=== PATIENT | female | born 1965 | race Caucasian/White ===

== ENCOUNTER 2023-09-13 21:46 | Emergency (ER) | payer OTHER ==
--- NOTE | 2023-09-13 22:21 | ERPHSYRPT ---
- History of Present Illness Time Seen by Provider: 09/13/23 22:17 Source: patient Exam Limitations: no limitations Physician History: 58-year-old female presents to our ED as a referral from her primary care doctor for a CT of her chest secondary to a positive D-dimer. Patient states she was on vacation at the [facility]. Patient returned back symptomatic. Patient follow-up with her primary care doctor and was advised that her spleen was somewhat enlarged. Primary care doctor currently working her up for possible malignancy. Patient otherwise feels well. No chest pain at this time. No nausea vomiting or diaphoresis. Patient appears anxious. She voices no other complaints or concerns at this time. Portions of this note were created with voice recognition technology. There may be grammatical, spelling, punctuation or sound alike errors Timing/Duration: today Severity: moderate Modifying Factors: Improves With: nothing Associated Symptoms: denies symptoms Allergies/Adverse Reactions: No Known Drug Allergies Allergy (Unverified 09/13/23 22:11) Home Medications: Levothyroxine Sodium 100 Mcg [Synthroid 100 Mcg] 0 mcg PO DAILY 09/13/23 [History] Metformin HCl 500 mg [Glucophage 500 MG] 500 mg PO BIDWM 09/13/23 [History] Vitamin D 2000 Units 2,000 units PO DAILY 09/13/23 [History] - Review of Systems Constitutional: No Symptoms, No Fever, No Chills Eyes: No Symptoms Ears, Nose, & Throat: No Symptoms Respiratory: No Symptoms, No Cough, No Dyspnea Cardiac: No Symptoms, No Chest Pain, No Edema, No Syncope Abdominal/Gastrointestinal: No Symptoms, No Abdominal Pain, No Nausea, No Vomiting, No Diarrhea Genitourinary Symptoms: No Symptoms, No Dysuria Musculoskeletal: No Symptoms, No Back Pain, No Neck Pain Skin: No Symptoms, No Rash Neurological: No Symptoms, No Dizziness, No Focal Weakness, No Sensory Changes Psychological: No Symptoms Endocrine: No Symptoms Hematologic/Lymphatic: No Symptoms Immunological/Allergic: No Symptoms All Other Systems: Reviewed and Negative - Nursing Vital Signs Nursing Vital Signs: Initial Vital Signs Temperature 98.5 F 09/13/23 22:18 Pulse Rate 135 H 09/13/23 22:18 Respiratory Rate 21 09/13/23 22:18 Blood Pressure 172/96 09/13/23 22:18 O2 Sat by Pulse Oximetry 97 09/13/23 22:18 Pain Scale Pain Intensity 2 - Physical Exam General Appearance: no apparent distress, alert Eye Exam: PERRL/EOMI, eyes nml inspection Ears, Nose, Throat Exam: normal ENT inspection, TMs normal, pharynx normal, moist mucous membranes Neck Exam: normal inspection, non-tender, supple, full range of motion Respiratory Exam: normal breath sounds, lungs clear, airway intact, No respi ratory distress Cardiovascular Exam: regular rate/rhythm, normal heart sounds, normal peripheral pulses Gastrointestinal/Abdomen Exam: soft, normal bowel sounds, No tenderness, No mass Back Exam: normal inspection, normal range of motion, No CVA tenderness, No vertebral tenderness Extremity Exam: normal inspection, normal range of motion, pelvis stable Neurologic Exam: alert, oriented x 3, cooperative, normal mood/affect, sensation nml, No motor deficits Skin Exam: normal color, warm, dry, No rash Lymphatic Exam: No adenopathy SpO2 Interpretation: normal SpO2: 98 O2 Delivery: Room Air - Course Nursing assessment & vital signs reviewed: Yes EKG Interpreted by Me: RATE ([id number]), Sinus Tach, NORMAL AXIS, NORMAL INTERVALS (Sinus tachycardia however patient is anxious) - CT Exams Chest CT Interpretation: Tele-radiologist Report (Calcified lung nodules bilateral lungs no PE.) Ordered Tests: Active Orders 24 hr Category Date Time Status CHEST WITH CONTRAST [CT] Stat Exams 09/13/23 22:15 Completed - Progress Progress: improved Progress Note: 58-year-old female presents to our ED as a referral from her primary care doctor for CTA chest. Patient had an outpatient workup which revealed a positive D- dimer. Patient has no other complaints. CTA chest negative for PE. Calcified lung nodules observed. Patient voices no other complaints or concerns at this time. Vital stable. Will discharge home. Patient agrees to follow-up with her primary care doctor within 48 hours for evaluation. Portions of this note were created with voice recognition technology. There may be grammatical, spelling, punctuation or sound alike errors Complexity problem addressed is moderate acute complicated No critical care time Complex of data reviewed and analyzed is moderate. Test ordered test reviewed. Results analyzed and correlated clinically with history and physical exam. Risk of complication and or risk of morbidity/mortality patient management is low Vital stable. Time spent to discharge patient is approximately 15 minutes. Plan of care established for shared decision making. No social determinants of health present impede follow-up. Portions of this note were created with voice recognition technology. There may be grammatical, spelling, punctuation or sound alike errors 09/14/23 00:21 Counseled pt/family regarding: diagnosis, need for follow-up - Departure Departure Disposition: Home Clinical Impression: Positive D dimer Condition: Stable Critical Care Time: No Referrals: DAWIT MCGARRY [Primary Care Provider] - Follow up/PCP as directed Additional Instructions: Discharge/Care Plan ROSALEE ROSS was seen on 09/14/23 in the Emergency Room. The patient was counseled regarding Diagnosis,Lab results, Imaging studies, need for follow up and when to return to the Emergency Room. Prescriptions given: Discharge Note I have spoken with the patient and/or caregivers. I have explained the patient's condition, diagnosis and treatment plan based on the information available to me at this time. I have answered the patient's and/or caregiver's questions and addressed any concerns. The patient and/or caregivers have as good understanding of the patient's diagnosis, condition and treatment plan as can be expected at this point. The vital signs have been stable. The patient's condition is stable and appropriate for discharge from the emergency department. The patient will pursue further outpatient evaluation with the primary care physician or other designated or consulting physician as outlined in the discharge instructions. The patient and/or caregivers are agreeable to this plan of care and follow-up instructions have been explained in detail. The patient and/or caregivers have received these instruction. The patient/and or caregivers are aware that any significant change in condition or worsening of symptoms should prompt an immediate return to this or the closest emergency department or call 911.
[2023-09-13 22:39] VITALS: TEMP 98.5
--- NOTE | 2023-09-13 23:53 | XRAY ---
CLINICAL HISTORY: sent from [facility] for CTA,ELEVATED DDIM TECHNIQUE: CT pulmonary angiogram was performed using contrast with sagittal and coronal reformats. COMPARISON: None FINDINGS: The main pulmonary trunk and right and left pulmonary arteries with the ascending and descending branches are normal. The segmental branches are normal in caliber and show good contrast opacification with no evidence of filling defect/thrombosis. The aortic arch and visualized ascending aorta and descending aorta are normal. A few small 3-5 mm calcified nodules were noted in bilateral lungs. No significant mediastinal lymphadenopathy. No evidence of pleural/pericardial effusion. Heart size appears normal. The thoracic spine shows early degenerative changes. The scanned upper abdomen appears unremarkable. IMPRESSION: 1. Unremarkable CT pulmonary angiography, no evidence of acute thromboembolism 2. Small calcified lung nodules, sequelae to previous infection, no follow-up is required Electronically Signed by: Rhonda Sinclair MD. (09/13/2023 23:48:55 EDT)
[2023-09-14 00:39] VITALS: BP 124/94; PULSE 111; RESP 26; O2SAT 94
== END 2023-09-14 00:45 | disposition home or self-care (01) ==
LOC: ED 21:46
DX: R79.1 Abnormal coagulation profile (principal); Z79.84 Long term (current) use of oral hypoglycemic drugs; Z79.899 Other long term (current) drug therapy
CPT/HCPCS: 71260; 99283